=== PATIENT | male | born 1980 | race Caucasian/White ===

== ENCOUNTER → 2022-01-19 02:34 | Outpatient (CLI) | payer OTHER, SELFPAY ==
--- NOTE | 2022-01-19 13:42 | DI.RAD_ITS ---
Exam(s) XR FOOT RT COMPLETE EXAM: XR FOOT RT COMPLETE CLINICAL HISTORY: point specific pain where achiles meets calcaneous, PAIN RT HEEL, M79.671. TECHNIQUE: 2D digital imaging was performed of the right foot. Three images were obtained. AP, obl ique and lateral views were obtained. COMPARISON: No exams were available for comparison FINDINGS: BONES: No acute fracture is present. No bony destructive lesion is seen. There is a large enthesophyt e at the posterior calcaneus. JOINTS: No dislocation present. Moderate degenerative changes are seen at the 1st MTP joint with join t space narrowing and bony hypertrophy. SOFT TISSUE: Normal. IMPRESSION: 1. Large posterior calcaneal enthesophyte. 2. 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 3. There is concern for Achilles tendon injury MRI should be obtained for further evaluation. DATA REPOSITORY: RADIATION DOSE DELIVERED:
== END ==
PROVIDERS: PCP Nurse Practitioner Adult Health; Visit Provider Nurse Practitioner Adult Health
DX: M77.31 Calcaneal spur, right foot (principal)
CPT/HCPCS: 73630